=== PATIENT | male | born 1940 | race Caucasian/White ===

== ENCOUNTER → 2019-01-16 | Outpatient (CLI) | payer MEDICARE, BC | LOC: COL.RAD 07:09 | DX: Z01.812 Encounter for preprocedural laboratory examination (principal); K57.10 Diverticulosis of small intestine without perforation or abscess without bleeding | CPT/HCPCS: Q9967 ==

== ENCOUNTER → 2020-04-11 | Outpatient (CLI) | payer MEDICARE, BC | LOC: COL.RAD 08:52 | DX: K44.9 Diaphragmatic hernia without obstruction or gangrene (principal); K21.00 Gastro-esophageal reflux disease with esophagitis, without bleeding ==

== ENCOUNTER 2021-02-09 09:40 | Emergency (ER) | payer MEDICARE, BC ==
[~2021-02-09] VITALS: Ht 180.3 cm; Wt 80.0 kg
[2021-02-09 09:45] VITALS: TEMP 97.8
[2021-02-09 10:20] LABS: BILIRUBIN,TOTAL 0.8 mg/dL (0.0-1.0); CALCIUM 8.6 mg/dL (8.4-10.2); CREATININE, serum 0.97 (0.66-1.25); TOTAL PROTEIN 7.2 gm/dL (6.4-8.2)
[2021-02-09 10:22] LABS: BASO % 0.4 % (0.0-2.0); EOS # 0.2 (0.0-0.7); EOS % 2.4 % (0-4.0); GRAN # 4.3 (1.4-6.5); GRAN % 64.4 % (42.2-75.2); HEMATOCRIT 48.9 % (42.0-52.0); HEMOGLOBIN 15.8 g/dl (13.5-18.0); LYMPH # 1.2 (1.2-3.4); LYMPH % 17.7 % (20.0-51.0); MEAN CELL VOLUME 92 fl (80.0-100.0); MEAN CORPUSCULAR HEMOGLOBIN 30 pg (27.0-31.0); MEAN CORPUSCULAR HGB CONC 32 g/dl (33.0-37.0); MEAN PLATELET VOLUME 9.2 fl (7.4-10.4); MONO % 14.8 % (1.7-9.3); PLATELET COUNT 254 K/mm3 (130-400); RED BLOOD COUNT 5.29 M/mm3 (4.20-5.60); REDCELL DISTRIBUTION WIDTH-CV 13.7 % (11.5-14.5)
[2021-02-09 10:36] LABS: TROPONIN-I 0.646 ng/mL (0.000-0.035)
[2021-02-09 10:48] LABS: INR 1.1 (0.8-3.0); PROTHROMBIN TIME 11.8 SECONDS (9.7-12.8)
[2021-02-09 10:51] LABS: PARTIAL THROMBOPLASTIN TIME 31.1 SECONDS (26.0-37.0)
[2021-02-09 11:04] VITALS: BP 102/73; PULSE 56
== END 2021-02-09 11:04 | disposition short-term general hospital (02) ==
LOC: COL.ER 09:40
PROVIDERS: Emergency Medicine
DX: I21.3 ST elevation (STEMI) myocardial infarction of unspecified site (principal)
CPT/HCPCS: J1644; J2270; J2405; J3101; J7030

== ENCOUNTER 2021-05-19 16:38 | Outpatient (RCR) | payer MEDICARE, BC | END 2021-05-23 | disposition home or self-care (01) | LOC: COL.CR | DX: Z48.812 Encounter for surgical aftercare following surgery on the circulatory system (principal); Z98.61 Coronary angioplasty status ==